=== PATIENT | male | born 1980 | race Two or more races ===

== ENCOUNTER 2023-10-14 00:21 | Inpatient (IN) | payer OTHER ==
[~2023-10-14] VITALS: Ht 175.3 cm; Wt 92.7 kg
[2023-10-14 05:09] LABS: COVID AG,FIA SOURCE NASAL SWAB
[2023-10-14 05:41] LABS: PH,URINE DRUG SCREEN 6.5 (5.0-8.0)
[2023-10-14 05:42] LABS: BASOPHILS % (AUTO) 0.3 % (0.0-2.0); EOSINOPHILS % (AUTO) 0.2 % (1.0-6.0); HEMATOCRIT 39.9 % (41-53); HEMOGLOBIN 13.8 g/dL (13.5-17.5); LYMPHOCYTES # (AUTO) 1.1 K/uL (1.0-4.8); LYMPHOCYTES % (AUTO) 14.5 % (22.0-44.0); MEAN CORPUSCULAR HEMOGLOBIN 34.1 pg (26.0-34.0); MEAN CORPUSCULAR HGB CONC 34.6 G/dL (31.0-37.0); MEAN CORPUSCULAR VOLUME 99 fL (80-100); MONOCYTES # (AUTO) 1.3 K/uL (0.1-1.0); MONOCYTES % (AUTO) 17.1 % (2.0-9.0); NEUTROPHILS # (AUTO) 5.2 K/uL (1.8-7.7); NEUTROPHILS % (AUTO) 67.9 % (40.0-70.0); PLATELET COUNT (AUTO) 130 K/uL (150-450); RED BLOOD CELL COUNT(AUTO) 4.05 MIL/uL (4.50-5.90); RED CELL DISTRIBUTION WIDTH 14.4 % (11.5-14.5); WHITE BLOOD COUNT (AUTO) 7.6 K/uL (4.5-11.0)
[2023-10-14 05:48] LABS: ANION GAP 17 mmol/L (8-16); CALCIUM, TOTAL 9.4 mg/dL (8.8-10.5); CARBON DIOXIDE 24 mmol/L (22-29); CHLORIDE 93 mmol/L (98-107); CREATININE 1.13 mg/dL (0.60-1.30); GLOMERULAR FILTR. RATE CALC > 60 mL/min (>60); GLUCOSE,RANDOM 95 mg/dL (70-110); SODIUM SERUM 134 mmol/L (136-145); UREA NITROGEN, BLOOD 26 mg/dL (7-18)
[2023-10-14 05:50] LABS: ALCOHOL, URINE DRUG SCREEN NEGATIVE (NEGATIVE); AMPHET/METH SCREEN,URINE NEGATIVE (NEGATIVE); BARBITURATE SCREEN, URINE NEGATIVE (NEGATIVE); BENZODIAZEPINES SCREEN,URINE NEGATIVE (NEGATIVE); CANNABINOID SCREEN,URINE NEGATIVE (NEGATIVE); COCAINE SCREEN,URINE NEGATIVE (NEGATIVE); METHADONE SCREEN, URINE NEGATIVE (NEGATIVE); OPIATE SCREEN,URINE NEGATIVE (NEGATIVE); PHENCYCLIDINE SCREEN,URINE NEGATIVE (NEGATIVE)
[2023-10-14 05:52] LABS: POTASSIUM 2.4 mmol/L (3.5-5.1)
[2023-10-14 05:57] LABS: SARS-COV2 (COVID) ANTIGEN,FIA Negative (Negative)
[2023-10-14] MEDS: POTASSIUM CHL 10 MEQ/WATER 50 ML IV SCH (06:00)
[2023-10-14 06:06] LABS: ALCOHOL, BLOOD (SERUM) < 3 mg/dL (0-10)
[2023-10-14] MEDS: POTASSIUM CHLORIDE 20 MEQ ER TABLET PO ONE ×2 (06:34→09:45)
[2023-10-14] MEDS: LORazepam 1 MG TABLET PO ONE (06:48)
[2023-10-14 06:51] LABS: ALANINE AMINOTRANSFERASE 97 U/L (12-78); ALKALINE PHOSPHATASE 46 U/L (46-116); ASPARTATE AMINOTRANSFERASE 103 U/L (15-37); BILIRUBIN,TOTAL 1.7 mg/dL (0.1-1.0); TOTAL PROTEIN, SERUM 8.1 g/dL (6.4-8.2)
[2023-10-14] MEDS: POTASSIUM CHL 20 MEQ/0.9% NS 1,000 ML IV ONE ×2 (06:54→09:45)
[2023-10-14 09:11] LABS: ANION GAP 13 mmol/L (8-16); CALCIUM, TOTAL 9.1 mg/dL (8.8-10.5); CARBON DIOXIDE 25 mmol/L (22-29); CHLORIDE 96 mmol/L (98-107); CREATININE 0.94 mg/dL (0.60-1.30); GLOMERULAR FILTR. RATE CALC > 60 mL/min (>60); GLUCOSE,RANDOM 97 mg/dL (70-110); SODIUM SERUM 134 mmol/L (136-145); UREA NITROGEN, BLOOD 24 mg/dL (7-18)
[2023-10-14 09:14] LABS: POTASSIUM 2.6 mmol/L (3.5-5.1)
[2023-10-14 11:41] VITALS: O2SAT 98
[2023-10-14 12:00] LABS: ANION GAP 11 mmol/L (8-16); CALCIUM, TOTAL 8.4 mg/dL (8.8-10.5); CARBON DIOXIDE 26 mmol/L (22-29); CHLORIDE 99 mmol/L (98-107); CREATININE 0.89 mg/dL (0.60-1.30); GLOMERULAR FILTR. RATE CALC > 60 mL/min (>60); GLUCOSE,RANDOM 90 mg/dL (70-110); SODIUM SERUM 136 mmol/L (136-145); UREA NITROGEN, BLOOD 20 mg/dL (7-18)
[2023-10-14 15:40] VITALS: BP 129/84; PULSE 92; RESP 18; TEMP 97.6; O2SAT 99
[2023-10-14] MEDS: LORazepam 2 MG TABLET PO PRN (21:20)
[2023-10-14] MEDS: HALOPERIDOL 5 MG TABLET PO PRN (21:20)
[2023-10-14] MEDS: ZOLPIDEM TARTRATE 10 MG TABLET PO PRN (21:46)
[2023-10-14 22:02] VITALS: BP 105/63; PULSE 63; RESP 18; TEMP 98.1; O2SAT 100
[2023-10-14] MEDS ORDERED: ACETAMINOPHEN 325 MG TABLET PO PRN (22:45)
[2023-10-14] MEDS ORDERED: PROMETHAZINE HCL 25 MG TABLET PO PRN (22:45)
[2023-10-14] MEDS ORDERED: GuaiFENesin/D-METHORPHAN [SUGAR-FREE] 200-20MG/10 ML SYRUP UDCUP PO PRN (22:45)
[2023-10-14] MEDS ORDERED: DIAZEPAM 10 MG TABLET PO PRN (22:45)
[2023-10-14] MEDS ORDERED: MAGNESIUM HYDROXIDE SUSPENSION 30 ML UDCUP PO PRN (22:45)
[2023-10-14] MEDS ORDERED: LOPERAMIDE HCL 2 MG CAPSULE PO PRN ×2 (22:45)
[2023-10-14] MEDS ORDERED: HydrOXYzine PAMOATE 50 MG CAPSULE PO PRN (22:45)
[2023-10-14] MEDS ORDERED: MAG HYDROX/ALUMINUM HYD/SIMETH ES 30 ML SUSPENSION UDCUP PO PRN (22:45)
[2023-10-14] MEDS ORDERED: TUBERCULIN, PURIFIED PROTEIN DERIVATIVE 5 TU/0.1 ML SYRINGE ID ONE (22:45)
[2023-10-14 23:00] VITALS: BP 110/62; PULSE 62; RESP 18; O2SAT 99
[2023-10-14 23:45] VITALS: BP 105/69; PULSE 76; RESP 18; TEMP 98.5; O2SAT 97
[2023-10-15] VITALS (7 sets, daily range): BP systolic 104–112; BP diastolic 62–67; PULSE 60–90; RESP 17–18; TEMP 97; O2SAT 97–98
[2023-10-15] MEDS: CYANOCOBALAMIN 1,000 MCG/ML VIAL IM ONE (00:47)
[2023-10-15 07:50] LABS: HEMOGLOBIN A1C 5.2 % (3.8-5.6)
[2023-10-15 08:05] LABS: CHOL/HDL RATIO 5.8 (4.2-7.3); FREE T4 (FREE THYROXINE) 1.1 ng/dL (0.76-1.46); THYROID STIMULATING HORMONE 0.95 uIU/mL (0.36-3.74)
[2023-10-15] MEDS: MULTIVITAMINS WITH MINERALS, THERAPEUTIC TABLET PO SCH (08:16)
[2023-10-15] MEDS: FOLIC ACID 1 MG TABLET PO SCH (08:16)
[2023-10-15] MEDS: NALTREXONE HCL 50 MG TABLET PO SCH (08:16)
[2023-10-15] MEDS: DIAZEPAM 10 MG TABLET PO SCH (08:16)
[2023-10-15] MEDS: THIAMINE 100 MG TABLET PO SCH (08:16)
[2023-10-15] MEDS: PARoxetine HCL 10 MG TABLET PO SCH (08:17)
[2023-10-15] MEDS: POTASSIUM CHLORIDE 20 MEQ ER TABLET PO ONE (10:29)
[2023-10-15] MEDS ORDERED: DIAZ10 PO (14:26)
[2023-10-15] MEDS ORDERED: MELA5TAB40 PO (14:26)
[2023-10-15] MEDS ORDERED: DIAZ-328 PO (14:26)
[2023-10-15] MEDS ORDERED: MIRT-89 PO (14:26)
[2023-10-15] MEDS ORDERED: NALT50TA33 PO (14:26)
[2023-10-15] MEDS ORDERED: MIRTAZAPINE 15 MG TABLET PO SCH (21:00)
[2023-10-15] MEDS ORDERED: MELATONIN 5 MG TABLET PO SCH (21:00)
[2023-10-17] MEDS ORDERED: DIAZEPAM 5 MG TABLET PO PRN (07:00)
[2023-10-17] MEDS ORDERED: DIAZEPAM 5 MG TABLET PO SCH (09:00)
[2023-10-18] MEDS ORDERED: DIAZEPAM 5 MG TABLET PO PRN (07:00)
== END 2023-10-15 15:20 | disposition short-term general hospital (02) | DRG 885 ==
LOC: EMS 00:21 → 3EI 16:46
PROVIDERS: ADMIT Psychiatry & Neurology Psychiatry; ATTEND Psychiatry & Neurology Psychiatry
PROC: GZHZZZZ Group Psychotherapy (ICD-10-PCS; principal; 2023-10-15)
PROC: GZ58ZZZ Individual Psychotherapy, Cognitive-Behavioral (ICD-10-PCS; 2023-10-15)
DX: F25.9 Schizoaffective disorder, unspecified (principal); E87.6 Hypokalemia; F10.10 Alcohol abuse, uncomplicated; F17.200 Nicotine dependence, unspecified, uncomplicated; F41.9 Anxiety disorder, unspecified; Z20.822 Contact with and (suspected) exposure to COVID-19; I10 Essential (primary) hypertension; J44.9 Chronic obstructive pulmonary disease, unspecified; K21.9 Gastro-esophageal reflux disease without esophagitis; R74.01 Elevation of levels of liver transaminase levels; K59.00 Constipation, unspecified
CPT/HCPCS: 80048; 80061; 80076; 80307; 83036; 84439; 84443; 85025; 86592; 99285; G0480; J3420; J3480